=== PATIENT | male | born 1960 | race Caucasian/White ===

== ENCOUNTER 2017-03-10 06:11 | Emergency (ER) | payer OTHER ==
[2017-03-10] MEDS ORDERED: Ketorolac Tromethamine 30 MG/ML VIAL ONE (06:38)
== END 2017-03-10 07:01 | disposition home or self-care (01) ==
LOC: SCSER 06:11
DX: M54.31 Sciatica, right side (principal); K21.9 Gastro-esophageal reflux disease without esophagitis; Z79.899 Other long term (current) drug therapy
CPT/HCPCS: 96372; J1885; J2270

== ENCOUNTER 2017-03-12 18:55 | Observation (INO) | payer OTHER ==
[2017-03-12] MEDS ORDERED: Ketorolac Tromethamine 30 MG/ML VIAL ONE (19:39)
[2017-03-12] MEDS ORDERED: Diazepam 10 MG/2 ML SYRINGE ONE (19:39)
[2017-03-12 19:47] LABS: #Basophils 0.1 thou/uL (0.0-0.2); #Lymphocytes 1.4 thou/uL (1.20-3.40); %Basophils 0.6 % (0.0-1.0); %Eosinophils 0.3 % (0.0-10.0); %Lymphocytes 10.3 % (21.0-51.0); %Monocytes 7.2 % (0.0-10.0); Hematocrit 42.9 % (42.0-52.0); Mean Platelet Volume 10.5 fL (7.4-10.4); White Blood Cell (WBC) Count 13.4 thou/uL (4.8-10.8)
[2017-03-12 19:58] LABS: Anion Gap 15 mmol/L (10-20); BUN (Urea Nitrogen) 17 mg/dL (8.4-25.7); Calc. Creatinine Clearance 0 mL/min (70-130); Calcium 9.4 mg/dL (7.8-10.44); Carbon Dioxide 26 mmol/L (22-29); Chloride 101 mmol/L (98-107); Estimated GFR-MDRD Greater than 90
--- NOTE | 2017-03-12 22:18 | RAD ---
THREE VIEWS LUMBAR SPINE 03/12/17 HISTORY: Low back pain which radiates to right leg. COMPARISON: 03/06/14. FINDINGS: Again noted is transitional vertebra at the lumbosacral junction. No fracture or subluxation is seen . The vertebral body heights are within normal limits. A few scattered minimal osteophytes are noted . There has been no interval change compared to the prior exam. IMPRESSION: 1. Mild degenerative changes without evidence of a fracture or subluxation. 2. Transitional vertebral body at the lumbosacral junction. POS: TATUM
[2017-03-13 04:29] VITALS: BMI 33.4
[2017-03-13] MEDS ORDERED: Ketorolac Tromethamine 30 MG/ML VIAL IVP PRN (04:29)
[2017-03-13] MEDS ORDERED: Morphine Sulfate 2 MG/ML SYRINGE SLOW IVP PRN (04:30)
[2017-03-13] MEDS ORDERED: Diazepam 10 MG/2 ML SYRINGE IVP PRN (04:31)
[2017-03-13] MEDS ORDERED: Ondansetron ODT 4 MG TAB SL PRN (04:32)
[2017-03-13] MEDS ORDERED: HYDROcodone/Acetaminophen 5/325 mg Tablet PO PRN ×2 (04:32)
[2017-03-13] MEDS ORDERED: Ondansetron HCl/PF 4 MG/2 ML Vial IVP PRN (04:32)
[2017-03-13] MEDS ORDERED: Acetaminophen 325 MG TAB PO PRN (04:32)
--- NOTE | 2017-03-13 06:06 | PDOC.EVN ---
Event Note - Event Note Event Note: [id number] h&p dictated 1. Acute on chronic lower back pain + h/o spinal stenosis 2. Pain 3. GERD PLAN: SEE ORDERS
[2017-03-13] MEDS: Dexamethasone 4 mg/ml Vial SLOW IVP SCH ×4 (06:30→23:04)
--- NOTE | 2017-03-13 06:53 | HP ---
CHIEF COMPLAINT: Back pain. HISTORY OF PRESENT ILLNESS: The patient is a 56-year-old male with past medical history of spinal s tenosis, GERD, chronic back pain, now came to the ER complaining of back pain. The back pain starte d 1 week back, constant, radiating to the right flank, spasm kind of pain to shooting kind of pain, associated with some numbness and tingling also. The patient tried some pain medication, some Flexe ril at home, it did not help, so he came to the ER. Patient also complains of urinary retention, al so. The patient went to outside ER where patient was found to have urinary retention, greater than 900 mL so the patient had a straight cath done. The patient last had micturition around 4:00 a.m. t his morning. Denies any fever, denies any chills, denies any chest pain, denies any trouble breathi ng, denies any dizziness. PAST MEDICAL HISTORY: As per HPI. PAST SURGICAL HISTORY: None. SOCIAL HISTORY: Denies smoking. Occasional alcohol, denies any drugs. ALLERGIES: PENICILLIN. MEDICATIONS: Reviewed. REVIEW OF SYSTEMS: CONSTITUTIONAL: Denies any fever, denies any chills. HEENT: Eyes; denies vision problems. Hearing, no problems. NECK: Denies any neck pain. CARDIOVASCULAR: Denies any chest pain. RESPIRATORY: Denies any dyspnea. Denies any cough. GASTROINTESTINAL: Denies nausea, vomiting. MUSCULOSKELETAL: Positive for back pain. PSYCHIATRIC: Denies syncope. INTEGUMENTARY: Denies any rash. All other review of systems are reviewed and are negative. PHYSICAL EXAMINATION: CONSTITUTIONAL/VITAL SIGNS: At the time of H\T\P performed, blood pressure is 138/69, heart rate 59 , temperature 98.0, respiration rate 16. GENERAL: Appears to be comfortable. HEENT: Pupils equal, round. Ears and nose patent. Nose normal. Teeth intact. Tongue is moist. NECK: Supple. No JVD. CARDIOVASCULAR SYSTEM: S1, S2 present. Regular rate and rhythm. No murmur. No rubs, no gallops. RESPIRATORY SYSTEM: No wheezing, no rhonchi. Breath sounds bilaterally. GASTROINTESTINAL: Soft, nontender, no guarding, no organomegaly, no masses felt. CRANIAL NERVE SYSTEM: Awake, follows commands. Speech clear. Strength intact. MUSCULOSKELETAL: Moves all extremities. PSYCH: Mood is appropriate at this time. INTEGUMENT: No rashes seen. LABORATORY DATA: At the time of H\T\P performed; white count 13.4, hemoglobin 14.1, platelet count is 261. BMP showed sodium 138, potassium 3.9, chloride 101, CO2 26, BUN 17, creatinine 0.85. MRI lumbar spine report is pending. X-ray lumbar spine positive for mild degenerative changes seen. ASSESSMENT AND PLAN: The patient is 56 years old male. 1. History of spinal stenosis plus acute on chronic lower back pain. Plan to consult Neurosurgery to evaluate the patient. We will monitor patient closely. We will start patient on IV Decadron and also on p.r.n. pain medication to monitor the patient closely. 2. Pain, p.r.n. pain meds. Monitor respiratory status closely. 3. Diabetes mellitus type 2. Monitor blood sugars. We will do insulin sliding scale. 4. Gastroesophageal reflux disease. We will do PPI. We will continue proton-pump inhibitor. The case was discussed in detail with the patient and patient's also.
[2017-03-13] MEDS: Enoxaparin Sodium 40 MG/0.4 ML SYRINGE SC SCH (08:28)
--- NOTE | 2017-03-13 08:44 | MRI ---
PRELIMINARY REPORT/[facility]/EMERGENCY AFTER HOURS PROCEDURE: EXAM: MR Lumbar Spine Without and With Intravenous Contrast EXAM DATE/TIME: Exam ordered 03/13/2017 12:11 AM CLINICAL HISTORY: 56 years old, male; Pain; Sciatica; Right; Patient HX: Pt C/O right sciatica (hip) pain x 5 days. Pa in is worsening. No trauma. No SX. Urinary retention. TECHNIQUE: Magnetic resonance images of the lumbar spine without and with intravenous contrast in multiple plan es. COMPARISON: No relevant prior studies available. FINDINGS: Vertebrae: Normal. No acute fracture. Marrow: There is increased T1 and T2 signal within the pars of L5 on the RIGHT probably representing fatty change or a hemangioma. Spinal cord: Normal. Normal signal. No abnormal enhancement. Soft tissues: Nonspecific soft tissue edema is noted in the posterior paraspinal muscles at L4-L5. DISCS/SPINAL CANAL/NEURAL FORAMINA: T12-L1: At T12-L1 there is no disc herniation stenosis or neuroforaminal narrowing. L1-L2: At L1-L2 there is mild disc bulge without significant spinal canal stenosis or neuroforaminal narrowing. L2-L3: At L2-L3 there is a broad-based mild disc bulge without significant spinal canal stenosis or neuroforaminal narrowing. L3-L4: At L3-L4 there is a moderate disc bulge which abuts the bilateral exiting nerve roots and cau ses mild spinal canal stenosis. L4-L5: L4-L5 there is a moderate broad-based disc bulge resulting in mild spinal canal stenosis and neuroforaminal narrowing. L5-S1: L5-S1 there is no significant spinal canal stenosis or neuroforaminal narrowing. IMPRESSION: Moderate disc bulge at L3-L4 with neural foraminal narrowing and moderate impaction of the bilateral exiting nerve roots. Thank you for allowing us to participate in the care of your patient. Dictated and Authenticated by: Miki Hutton MD 03/13/2017 1:34 AM Central Time ([place] \T\ [place]) FINAL REPORT EMERGENCY AFTER HOURS STUDY MRI LUMBAR SPINE NONCONTRAST: Date: 03/13/17 Time: 0014 hours HISTORY: 56-year-old male with low back pain and urinary retention, and right hip pain for 5 days. FINDINGS: Not mentioned in the preliminary report by Ricardo, there is a right far lateral, approximately 15 x 7 x 8 mm extruded disc fragment lateral to the right L3-4 neural foramen, deforming and indenting the undersurface of the exiting right L3 nerve root. This has a high probability of being the cause of t he patient's right-sided radiculopathy. This was not mentioned in the preliminary report by Ricardo. The urinary bladder is distended. Note that there is transitional level at the lumbosacral junction and the labeling of the L3-4 level is contingent upon considering L5 partially sacralized, with left -sided L5-S1 assimilation joint. IMPRESSION: 1. Right L3-4 far lateral extruded disc fragment significantly impinging on the exiting right L3 ne rve root. 2. Transitional levels. POS: TATUM
[2017-03-13] MEDS ORDERED: Famotidine 20 MG TAB PO PRN (09:00)
[2017-03-13] MEDS ORDERED: Gabapentin 300 MG CAP PO SCH (09:00)
[2017-03-13] MEDS: traMADol HCl 50 MG TAB PO PRN ×2 (15:35→23:02)
--- NOTE | 2017-03-13 16:12 | PDOC.EVN ---
Event Note - Event Note Event Note: Chart reviewed, pt seen. Awaiting neurosurgery recommendations.
[2017-03-13] MEDS ORDERED: Acetaminophen/Codeine 30-300mg Tablet PO PRN (17:19)
--- NOTE | 2017-03-13 18:14 | CON ---
DATE OF CONSULTATION: 03/13/2017 HISTORY OF PRESENT ILLNESS: Mr. Alas is a 56-year-old male, who I saw in his room this morning. He has chronic low back pain and has had several episodes throughout the past few years approximate ly 2-3 episodes per year of back pain and leg pain. These episodes are not increasing frequency. T his episode; however, is the worst he has been. Back pain started about a week ago after constant, radiating right flank spasms, shooting in character and associated with numbness and tingling in the right L4 and L5 dermatome in the lower extremity. He has tried pain medications taking Flexeril at home that did not help. He came to the emergency room at [facility] with complaints of so me urinary retention. The patient was straight catheterized and 900 mL were returned. The patient had urine around 4:00 a.m. this morning. Denies any fever, chills, or chest pain. Denies any troub le breathing. Patient specifically denies any bladder or bowel incontinence. An MRI of the lumbar spine was completed and Neurosurgery was consulted on the findings. PAST MEDICAL HISTORY: Lumbar spinal stenosis, GERD, chronic low back pain. PAST SURGICAL HISTORY: None. SOCIAL HISTORY: Denies smoking or occasional alcohol. Denies any drugs. ALLERGIES: PENICILLIN. MEDICATIONS: Have been reviewed. REVIEW OF SYSTEMS: Positive for back pain and right leg numbness and tingling in the L4 and L5 derm atome. Ten-point review of systems is completed and is otherwise negative unless stated in the abov e HPI. PHYSICAL EXAMINATION: VITAL SIGNS: Currently, temperature 98.5, pulse 89, respirations 16, O2 sat 96%, blood pressure is 132/66. CONSTITUTIONAL: The patient is afebrile in no acute distress, lying in his bed, appears to be comfo rtable. HENT: Normocephalic, atraumatic. Hearing intact. Moist mucous membranes. Trachea is midline. EYES: Pupils equal and reactive to light. Extraocular muscles are intact. Sclerae is white, nonic teric. RESPIRATORY: The patient has bilateral symmetric chest rise. Appears to be no shortness of breath. CARDIOVASCULAR: The patient has regular rate and rhythm, normal S1, S2 heart sounds. EXTREMITIES: No distal cyanosis or clubbing noted. Pulses are equal and symmetric bilaterally in t he upper extremities in the brachial and radial. Pulses are equal +2 and symmetric in the lower ext remities and posterior tibial pulses. MUSCULOSKELETAL: lower extremity, patient has numbness and tingling in the right L5 dermatome and L 4 dermatome. He has 5/5 strength bilaterally, no dermatomal sensory loss in the left lower extremit y. He has 5/5 strength bilaterally in the upper extremity. No dermatomal sensory loss in the upper extremities bilaterally. NEUROLOGIC: Cranial nerves II-XII are grossly intact. Speech is fluent. Answers my questions appr opriately. GCS is 15. IMAGING: MRI of the lumbar spine shows right L3-L4 far lateral extruded disk fragment significantly impinging on exiting root area of L3 nerve root. Patient has moderate disk bulges that are broad-b ased at L2 through L5 resulting in mild spinal canal stenosis and mild foraminal narrowing. ASSESSMENT: Mr. Alas is a 56-year-old who presents with intractable low back pain and urinary re tention. Urinary retention, has resolved. PLAN: From neurosurgical standpoint, there is no neurosurgical intervention. It is an emergency at this time. We will have Mr. Alas follow up in our office. Our corporate scheduler will be contacting him and setting up that appointment in the near future. We will discuss treatment options at that time . Before he sees us in clinic, he should be referred to Dr. Gusman and Dr. Davila for epidu ral steroid or transforaminal injections to see if that gives him relief. After these injections, obed hallman needs to follow up with Neurosurgery. If there are any further questions, please feel free to con tact Neurosurgery.
[2017-03-13] MEDS: Cyclobenzaprine 10 MG TAB PO PRN (19:20)
[2017-03-13] MEDS: Gabapentin 300 MG CAP PO SCH (19:21)
[2017-03-13] MEDS: Acetaminophen/Codeine 30-300mg Tablet PO PRN (19:21)
[2017-03-13] MEDS: Diazepam 5 MG TAB PO PRN (23:03)
[2017-03-14] MEDS: Acetaminophen/Codeine 30-300mg Tablet PO PRN ×3 (05:50→20:08)
[2017-03-14] MEDS: Cyclobenzaprine 10 MG TAB PO PRN ×3 (05:50→22:59)
[2017-03-14] MEDS: Dexamethasone 4 mg/ml Vial SLOW IVP SCH ×4 (05:52→23:00)
[2017-03-14] MEDS: Enoxaparin Sodium 40 MG/0.4 ML SYRINGE SC SCH (09:24)
[2017-03-14] MEDS: Gabapentin 300 MG CAP PO SCH ×3 (09:24→20:08)
[2017-03-14] MEDS: traMADol HCl 50 MG TAB PO PRN ×3 (09:29→22:59)
[2017-03-14] MEDS: Diazepam 5 MG TAB PO PRN ×2 (09:29→17:24)
[2017-03-14] MEDS ORDERED: Bisacodyl 5 MG TAB PO PRN (09:51)
[2017-03-14] MEDS ORDERED: Bisacodyl 5 MG TAB PO SCH (10:00)
--- NOTE | 2017-03-14 11:36 | PRG ---
DATE OF SERVICE: 03/14/2017 This is a 30-minute initial hospital visit in which 30 minutes were spent in review of the imaging r ecord, evaluation and examination of the patient. Greater than 50% of the time was spent in staff counselor ing on patient, Anthony Alas. CHIEF COMPLAINT: Low back and right lower extremity pain with right L3-L4 far lateral disk extrusio n with compression of the right L3 nerve root. HISTORY OF PRESENT ILLNESS: I reviewed the notes of Bunny Blount PA-C, and agree with its content. Olivia Alas is a very pleasant 56-year-old gentleman I am seeing in consultation. The patient, for t he last 1 week, has had low back and right lower extremity pain. He describes this is into the hip and the lateral and anterior thigh. He does state it goes below the knee, which is not typical of a n L3 radiculopathy. Nevertheless review of his lumbar spine x-rays demonstrate no worrisome subluxa tion or malalignment, but these were not dynamic films. MRI demonstrates evidence of a right L3-L4 far lateral disk extrusion with compression of the exiting right L3 nerve root. I strongly suspect this is the culprit of his symptoms. He has been initiated on Tylenol with Codeine, Flexeril, Decad fidencio, and Valium and also gabapentin. Consultation with Dr. Gusman has also been arranged. PHYSICAL EXAMINATION: On exam, the patient is alert and appropriate. He has excellent strength thr oughout his bilateral lower extremity myotomes. He has even tried to get up and states that he is f eeling better than he did yesterday; they were admitted yesterday morning, approximately 30 hours ag o. IMPRESSION AND PLAN: I have let the patient know that I think given that he has only had the sympto ms for 1 week and that he has excellent strength throughout his lower extremity myotomes, pursuance of conservative management would be recommended. As such, I would be fine with dismissal once his p ain is under satisfactory control and arranging for a followup appointment with Dr. Gusman for right L3 transforaminal epidural steroid injection with follow up with either my colleague, Dr. Yasmin galvan, or myself. We will continue to follow along in regard to Mr. Alas. [facility] the dismissal may occur whenever the patient is deemed with satisfactory pain control an d meets criteria. DIAGNOSES: Low back and right lower extremity pain with right L3-L4 far lateral disk extrusion and right L3 radiculopathy.
--- NOTE | 2017-03-14 12:35 | PDOC.PN ---
- Subjective Encounter Start Date: 03/14/17 Encounter Start Time: 07:40 Pt seen for followup re; back pain. Denies chest pain, shortness of breath, fevers or chills. No nausea or vomiting. Constipated. - Objective MAR Reviewed: Yes Vital Signs & Weight: Vital Signs (12 hours) Temp Pulse Resp BP Pulse Ox 03/14/17 11:08 97.8 F 71 20 122/70 91 L 03/14/17 07:57 97.9 F 64 16 03/14/17 07:00 97.9 F 64 16 120/70 94 L 03/14/17 04:28 97.6 F 67 18 131/79 97 Weight Weight 213 lb 6.4 oz I&O: 03/13/17 03/14/17 03/15/17 06:59 06:59 06:59 Intake Total 241 1781 300 Output Total 2400 Balance 241 -619 300 Result Diagrams: 03/12/17 19:35 03/12/17 19:35 Phys Exam - Physical Examination Constitutional: NAD HEENT: moist MMs, oral pharynx no lesions Neck: supple Respiratory: no wheezing, no rales, no rhonchi, clear to auscultation bilateral Cardiovascular: RRR, no rub Gastrointestinal: soft, non-tender, positive bowel sounds Neurological: moves all 4 limbs Psychiatric: normal affect Skin: no rash Dx/Plan (1) Back pain Code(s): M54.9 - DORSALGIA, UNSPECIFIED Status: Acute (2) Constipation Code(s): K59.00 - CONSTIPATION, UNSPECIFIED Status: Acute (3) Lumbar stenosis Code(s): M48.06 - SPINAL STENOSIS, LUMBAR REGION Status: Chronic - Plan PT/OT, out of bed/ambulate, DVT proph w/lovenox * . Continue steroids. Ambulate pt. Appreciate neurosurgery input. Likely home 24-48 hrs. Review of Systems - Review of Systems Constitutional: negative: Fever, Chills, Sweats, Weakness, Malaise Respiratory: negative: Cough, Dry, Shortness of Breath, Hemoptysis, SOB with Excertion, Pleuritic Pain, Sputum, Wheezing Cardiovascular: negative: Chest Pain, Palpitations, Orthopnea, Paroxysmal Noc. Dyspnea, Edema, Light Headedness Gastrointestinal: Constipation Musculoskeletal: Back Pain, Leg Pain - Medications/Allergies Allergies/Adverse Reactions: Allergies Allergy/AdvReac Type Severity Reaction Status Date / Time Penicillins Allergy Verified 03/13/17 04:38 Medications: Current Medications Acetaminophen/Codeine Phosphate (Tylenol #3) 1 tab PO Q4H PRN PRN Reason: Moderate Pain (4-6) Acetaminophen/Codeine Phosphate (Tylenol #3) 2 tab PO Q4H PRN PRN Reason: Severe Pain (7-10) Last Admin: 03/14/17 11:46 Dose: 2 tab Bisacodyl (Dulcolax) 10 mg PO DAILYPRN PRN PRN Reason: Constipation Cyclobenzaprine HCl (Flexeril) 10 mg PO TID PRN PRN Reason: Muscle Spasm Last Admin: 03/14/17 05:50 Dose: 10 mg Dexamethasone (Decadron) 4 mg SLOW IVP Q6HR [facility] Last Admin: 03/14/17 11:44 Dose: 4 mg Diazepam (Valium) 5 mg PO Q8H PRN PRN Reason: Muscle Spasm Last Admin: 03/14/17 09:29 Dose: 5 mg Enoxaparin Sodium (Lovenox) 40 mg SC 0900 [facility] Last Admin: 03/14/17 09:24 Dose: 40 mg Famotidine (Pepcid) 20 mg PO DAILYPRN PRN PRN Reason: INDIGESTION Gabapentin (Neurontin) 300 mg PO TID [facility] Last Admin: 03/14/17 09:24 Dose: 300 mg Pantoprazole Sodium (Protonix) 40 mg PO BID [facility] Last Admin: 03/14/17 09:24 Dose: 40 mg Sodium Chloride (Flush - Normal Saline) 10 ml IVF Q12HR [facility] Sodium Chloride (Flush - Normal Saline) 10 ml IVF PRN PRN PRN Reason: Saline Flush Tramadol HCl (Ultram) 50 mg PO Q6H PRN PRN Reason: Mild-Moderate Pain (1-5) Last Admin: 03/13/17 23:02 Dose: 50 mg Tramadol HCl (Ultram) 100 mg PO Q6H PRN PRN Reason: Moderate to Severe Pain (6-10) Last Admin: 03/14/17 09:29 Dose: 100 mg
[2017-03-15] MEDS: traMADol HCl 50 MG TAB PO PRN ×3 (04:49→18:14)
[2017-03-15] MEDS: Diazepam 5 MG TAB PO PRN ×3 (04:49→20:21)
[2017-03-15] MEDS: Dexamethasone 4 mg/ml Vial SLOW IVP SCH (04:49)
[2017-03-15] MEDS: Acetaminophen/Codeine 30-300mg Tablet PO PRN ×3 (07:09→20:20)
[2017-03-15] MEDS: Cyclobenzaprine 10 MG TAB PO PRN ×2 (07:09→15:22)
[2017-03-15] MEDS: Enoxaparin Sodium 40 MG/0.4 ML SYRINGE SC SCH (08:55)
[2017-03-15] MEDS: Gabapentin 300 MG CAP PO SCH ×3 (08:56→20:20)
--- NOTE | 2017-03-15 10:58 | PDOC.PN ---
- Subjective Encounter Start Date: 03/15/17 Encounter Start Time: 10:56 Patient states that he having severe pain and difficulty walking and after his morning walk he is having even more pain and discomfort. States that he would prefer to go to his physicians office tomorrow directly from the hospital as he lives hours away and says he will not be able to tolerate the pain. at bedside, all questions answered. - Objective Vital Signs & Weight: Vital Signs (12 hours) Temp Pulse Resp BP Pulse Ox 03/15/17 07:22 98.4 F 74 16 03/15/17 07:10 98.1 F 76 18 122/71 94 L 03/15/17 04:43 98.4 F 74 16 128/76 96 03/14/17 23:07 97.7 F 75 12 130/75 92 L Weight Weight 232 lb I&O: 03/14/17 03/15/17 03/16/17 06:59 06:59 06:59 Intake Total 1781 1140 250 Output Total 2400 275 150 Balance -619 865 100 Result Diagrams: 03/12/17 19:35 03/12/17 19:35 Phys Exam - Physical Examination Constitutional: NAD laying in bed, knees bent unable to sit up appears uncomfortable in bed HEENT: PERRLA, moist MMs Neck: no nodes, no JVD Respiratory: no wheezing, no rales Cardiovascular: RRR, no significant murmur Gastrointestinal: soft, non-tender Musculoskeletal: no edema, pulses present positive straight leg raise test B/L Neurological: non-focal, normal sensation Psychiatric: normal affect, A&O x 3 Skin: no rash, normal turgor Dx/Plan (1) Back pain Code(s): M54.9 - DORSALGIA, UNSPECIFIED Status: Acute (2) Constipation Code(s): K59.00 - CONSTIPATION, UNSPECIFIED Status: Acute (3) Lumbar stenosis Code(s): M48.06 - SPINAL STENOSIS, LUMBAR REGION Status: Chronic - Plan * DC decadron for today, will change to prednisone 40mg po daily for now to see if patient can tolerate po pain medication regimen * patient states he will go directly to his physicians office tomorrow to get a shot in his spine to help for his pain * patient states he is still having significant pain and unable to do much after his short walk earlier this morning * DC plans in AM directly to physicians office for spinal pain injections * case and plan d/w patient and at length, they understand and agree with this plan
[2017-03-15] MEDS ORDERED: Docusate 100 MG CAP PO SCH (11:00)
[2017-03-15] MEDS ORDERED: predniSONE 20 MG TAB PO SCH (11:15)
[2017-03-15] MEDS: Docusate 100 MG CAP PO SCH (20:20)
[2017-03-16 07:43] VITALS: BP 143/82; TEMP 98.2
[2017-03-16] MEDS: Gabapentin 300 MG CAP PO SCH (07:46)
[2017-03-16] MEDS: Enoxaparin Sodium 40 MG/0.4 ML SYRINGE SC SCH (07:46)
[2017-03-16] MEDS: Docusate 100 MG CAP PO SCH (07:47)
[2017-03-16] MEDS: Cyclobenzaprine 10 MG TAB PO PRN (07:48)
[2017-03-16] MEDS: traMADol HCl 50 MG TAB PO PRN (07:48)
[2017-03-16] MEDS ORDERED: predniSONE 20 MG TAB PO SCH (08:00)
[2017-03-16] MEDS ORDERED: Fleet Enema 133 ML BOT PR SCH (09:45)
[2017-03-16] MEDS: Diazepam 5 MG TAB PO PRN (11:51)
[2017-03-16] MEDS: Acetaminophen/Codeine 30-300mg Tablet PO PRN (11:52)
--- NOTE | 2017-03-16 12:13 | DIS ---
DATE OF ADMISSION: 03/13/2017 DATE OF DISCHARGE: 03/16/2017 DISCHARGE DIAGNOSES: Back pain secondary to lumbar spinal stenosis and some lumbar disk disease, ga stroesophageal reflux disease, chronic low back pain, questionable history of borderline diabetes. DISCHARGE MEDICATIONS: The same as admit medications. CONSULTANTS: Consultants on the case with Neurosurgery. IMAGING STUDIES: Studies done this hospital stay was MRI of the lumbar spine, which showed a right L3-L4 far lateral extruded disk fragment significantly impinging on the exiting root area of L3 nerv e root, also had moderate disk bulges that are broad based at L2 through L5 resulting in mild spinal canal stenosis and mild foraminal narrowing. BRIEF HOSPITAL COURSE: A 56-year-old pleasant gentleman who came into the hospital for back pain. Comfort care was initiated with pain medications. Neurosurgery evaluated the patient and went over the lumbar spine MRI films of him. The patient from a neurosurgical standpoint, they thought that t here was no neurosurgical intervention needed at this point. They, however, recommended outpatient pain clinic and also recommended epidural steroid injections to see if that gave him relief. They a lso said that if it does not, he would follow up with Neurosurgery. The patient has appointment wit h pain management today. His pain is bearable. His hospital course was complicated by constipation secondary to pain pills. He had a fleet enema and constipation was resolved. The patient right no w is medically stable to be discharged with outpatient followup with pain management, Neurosurgery, and PCP in 1 week. PHYSICAL EXAMINATION: VITAL SIGNS: At the time of his discharge, his blood pressure was 130/60, temperature afebrile, pul se was 89, breathing comfortably on room air. GENERAL: The patient was lying in bed, in no apparent distress. HEENT: Atraumatic, normocephalic. Pupils equally round, react to light. Extraocular movements are intact. Mucous membranes are moist. NECK: Supple. No JVD. CHEST: Breath sounds. There are no rales or rhonchi. HEART: S1, S2. No murmurs or gallops. ABDOMEN: Soft. EXTREMITIES: No cyanosis, clubbing, or edema. Distal pulses present. NEUROLOGIC: Alert, awake, oriented. No cranial deficits. No sensorimotor deficits. The patient right now is medically stable to be discharged. He is asked to come back to the emergen cy room in case symptoms recur. Total time for this discharge took 35 minutes.
== END 2017-03-16 12:45 | disposition home or self-care (01) ==
LOC: SCSER 18:55 → 2SW 03-13 01:40
PROVIDERS: ADMIT Internal Medicine; ATTEND Internal Medicine
DX: M48.061 Spinal stenosis, lumbar region without neurogenic claudication (principal); M51.36 Other intervertebral disc degeneration, lumbar region; K21.9 Gastro-esophageal reflux disease without esophagitis; Z88.0 Allergy status to penicillin; Z79.891 Long term (current) use of opiate analgesic
CPT/HCPCS: 51701; 72100; 72148; 80048; 85025; 96361; 96372; 96374; 96375; 96376; A4216; G0378; G8978-GP-CJ; G8979-GP-CH; J1100; J1650; J1885; J2270; J3360; J7506

== ENCOUNTER 2018-10-07 15:34 | Outpatient (CLI) | payer BC ==
--- NOTE | 2018-10-07 16:28 | RAD ---
Exam: Lumbar spine 4 views HISTORY: Disc herniation at L3 and L4. Right leg pain. COMPARISON: 03/12/2017 FINDINGS: Upright AP, lateral neutral, lateral flexion and lateral extension views are submitted for interpretation Redemonstration of a transitional vertebra at the lumbosacral junction. Lumbar spine vertebral body h eight is maintained. There is no fracture. In the neutral position, 2.8 mm of anterolisthesis of L5 upon S1. Upon flexion, 3.9 mm of anterolisthesis of L5 upon S1. Upon extension, 2.7 mm retrolisthesis of L5 upon S1. Minimal osteophyte formation, without significant loss of disc space height throughout the lumbar spi ne. IMPRESSION: 1. Mild degenerative changes. 2. Grade 1 anterolisthesis of L4-5 upon S1 without significant change upon extension or flexion.
--- NOTE | 2018-10-08 08:07 | MRI ---
MRI Lumbar Spine Noncontrast: HISTORY: Low back pain. Right leg pain. COMPARISON: None 04/03/2017 FINDINGS: The visualized retroperitoneal structures demonstrate a normal appearance. Conus medullaris is normal in morphology and terminates at the T12 level. Normal signal intensity is demonstrated in the bone marrow. L1-2: There is a mild disc osteophyte complex which only results in mild mass effect on the anterior aspect of the thecal sac. Neural foramina are patent. L2-3: There is a disc osteophyte complex without significant narrowing of the central spinal canal, a nd the neural foramina are patent. L3-4: There is loss of intervertebral disc height. Disc osteophyte complex is present. As noted on th e prior exam, there is a persistent far lateral right extruded disc fragment lateral to the right L3-4 neural foramen. This again likely affects the exited right L3 nerve root. There is mild left and moderate right-sided neural foraminal narrowing L4-5: There is loss of intervertebral disc height. Broad-based disc osteophyte complex is again prese nt. Facet hypertrophic changes and ligamentous thickening are noted. There is generalized mild narrowing of the central spinal canal with moderate bilateral neural foraminal narrowing. A 6 mm incr eased T2-weighted signal intensity focus is seen adjacent to the anterolateral right facet joint which likely represents a small synovial cyst. This does encroach on the exiting right L4 nerve root. L5-S1: No disc bulge disc herniation is identified. There are facet hypertrophic changes greater on t he right. Fluid signal intensity is again seen within the right-sided facet joint. IMPRESSION: Degenerative changes in the lumbar spine greatest at the L3-4 and L4-5 levels. At the L3-4 level, the re is a broad-based disc osteophyte complex in addition to a far lateral right extruded disc fragment which again likely affects the exited right L3 nerve root. Moderate bilateral neural foramin al narrowing is seen at the L4-5 level with synovial cyst adjacent to the right sided facet joint which encroaches on the exiting right L4 nerve root. Moderate bilateral neural foraminal narrowing is present at this level.
== END 2018-10-07 15:35 | disposition home or self-care (01) ==
LOC: TBSIIMAG 15:34
PROVIDERS: ATTEND Physician Assistant Surgical
DX: M48.061 Spinal stenosis, lumbar region without neurogenic claudication (principal); M54.5 Low back pain; M47.816 Spondylosis without myelopathy or radiculopathy, lumbar region; M43.16 Spondylolisthesis, lumbar region; M43.17 Spondylolisthesis, lumbosacral region; M25.78 Osteophyte, vertebrae; M71.38 Other bursal cyst, other site
CPT/HCPCS: 72110; 72148

== ENCOUNTER 2019-09-08 13:38 | Outpatient (CLI) | payer BC ==
--- NOTE | 2019-09-08 15:00 | MRI ---
MRI lumbar spine noncontrast HISTORY: Low back pain. Radiculopathy. COMPARISON: 10/07/2018. FINDINGS: Transitional vertebra at the lumbosacral junction. In keeping with numbering on prior MRI f rom 09/08/2019, the transitional vertebra will be designated as L5, with the remainder number accordingly. Conus medullaris terminates at T12 and has a normal appearance. Bone marrow signal is wi thin normal limits. There is desiccation of all of the intervertebral discs. T12-L1: Mild osteophytosis. Central canal and neural foramina are patent. L1-2: Minimal disc bulge. Osteophytosis of the facets. Central canal and neural foramina are patent. L2-3: Mild far right and left lateral disc bulge. Osteophytosis of the facets. Moderate stenosis of e ach neural foramen. Thecal sac is patent. L3-4: Disc space narrowing. Posterior disc bulge and circumferential degenerative changes. Mild steno sis of the central canal. Far right lateral disc protrusion and degenerative changes compress the right nerve root within the neural foramen. Nerve root appears enlarged. There is moderate to severe stenosis of the left neural foramen. L4-5: Minimal degenerative spondylolisthesis. Mild posterior disc bulge and circumferential degenerat blas changes. Mild stenosis of the central canal. Moderate to severe stenosis of each neural foramen. L5-S1: Osteophytosis of the facets. Central canal and neural foramina are patent. 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 Interval progression of disease. More prominent compression of the inflamed appearing right L3 nerve root within the neural foramen. Bilateral foraminal stenoses at the L4-5 level have also progressed.
== END 2019-09-08 13:39 | disposition home or self-care (01) ==
LOC: TBSIIMAG 13:38
PROVIDERS: ATTEND Surgery
DX: M54.16 Radiculopathy, lumbar region (principal); M71.30 Other bursal cyst, unspecified site; M48.061 Spinal stenosis, lumbar region without neurogenic claudication
CPT/HCPCS: 72148

== ENCOUNTER 2019-10-17 07:33 | Outpatient (CLI) | payer BC, OTHER ==
[2019-10-17 15:45] LABS: Hemoglobin 13.6 g/dL (14.0-18.0); Mean Corpuscular HGB CONC 32.4 g/dL (32.0-36.0); Mean Corpuscular Hemoglobin 28.4 pg (27.0-31.0); Mean Corpuscular Volume 87.8 fL (78.0-98.0); Mean Platelet Volume 9.7 fL (7.4-10.4); Platelet Count 282 thou/uL (130-400); RBC Distribution Width 14.4 % (11.5-14.5); Red Blood Cell (RBC) Count 4.78 mill/uL (4.70-6.10); White Blood Cell (WBC) Count 7.4 thou/uL (4.8-10.8)
[2019-10-17 15:51] LABS: PTT 27.1 SEC (22.9-36.1); Prothrombin Time 12.9 SEC (12.0-14.7)
[2019-10-17 16:08] LABS: Anion Gap 14 mmol/L (10-20); BUN (Urea Nitrogen) 11 mg/dL (8.4-25.7); Calc. Creatinine Clearance 0 mL/min (70-130); Calcium 9.2 mg/dL (7.8-10.44); Carbon Dioxide 25 mmol/L (22-29); Chloride 106 mmol/L (98-107); Estimated GFR-MDRD 74; Glucose 119 mg/dL (70-105); Potassium 3.6 mmol/L (3.5-5.1); Sodium 141 mmol/L (136-145)
[2019-10-18 11:19] LABS: SARS-CoV-2 MS2 Positive; SARS-CoV-2 N Gene Negative; SARS-CoV-2 S Gene Negative; SARS-CoV-2 orf1ab Negative
== END 2019-10-17 07:34 | disposition home or self-care (01) ==
LOC: LABBT 07:33
PROVIDERS: ATTEND Surgery
DX: Z01.818 Encounter for other preprocedural examination (principal); Z11.59 Encounter for screening for other viral diseases; M51.16 Intervertebral disc disorders with radiculopathy, lumbar region; M48.061 Spinal stenosis, lumbar region without neurogenic claudication
CPT/HCPCS: 80048; 85027; 85610; 85730; 87635; 93005; 93010; U0003

== ENCOUNTER 2019-10-20 08:56 | Day surgery (SDC) | payer BC ==
[2019-10-20] MEDS ORDERED: Levofloxacin 500 mg/D5W 100 ml Premix Bag ONE (09:36)
[2019-10-20] MEDS ORDERED: Clindamycin/D5W 900 mg/50 ml Premix Bag ONE (09:36)
[2019-10-20] MEDS ORDERED: Ondansetron PF 4 MG/2 ML Vial ONE (10:35)
[2019-10-20] MEDS ORDERED: Rocuronium Bromide 10 MG/ML (10ML VIAL) ONE (10:35)
[2019-10-20] MEDS ORDERED: Ketorolac Tromethamine 30 MG/ML VIAL ONE (10:35)
[2019-10-20] MEDS ORDERED: diphenhydrAMINE 50 MG/ML VIAL ONE (10:35)
[2019-10-20] MEDS ORDERED: Glycopyrrolate 0.2 MG/ML 5 ML SYRINGE ONE (10:35)
[2019-10-20] MEDS ORDERED: PHENYLEPHRINE-NS 100 MCG/ML 10 ML SYRINGE ONE (10:35)
[2019-10-20] MEDS ORDERED: PROPOFOL 200 MG/20 ML VIAL ONE (10:35)
[2019-10-20] MEDS ORDERED: Dexamethasone 20 MG/5 ML VIAL ONE ×2 (10:35)
[2019-10-20] MEDS ORDERED: EPHEDRINE 25 MG/5 ML SYRINGE ONE (10:35)
[2019-10-20] MEDS ORDERED: Thrombin 5000 UNITS/5 ML VIAL ONE ×2 (11:19→14:09)
[2019-10-20] MEDS ORDERED: Ketamine 50 MG/ML (10ML VIAL) ONE (11:32)
[2019-10-20] MEDS ORDERED: Midazolam HCl 2 mg/2 ml Vial ONE (11:32)
[2019-10-20] MEDS ORDERED: Fentanyl 250 MCG/5 ML VIAL ONE (11:32)
[2019-10-20] MEDS ORDERED: Phenylephrine 10 MG/ML VIAL ONE (13:42)
[2019-10-20] MEDS ORDERED: PACU-Morphine 4MG/ML VIAL SLOW IVP PRN (15:19)
[2019-10-20] MEDS ORDERED: Promethazine HCl 25 MG/ML VIAL SLOW IVP PRN (15:19)
[2019-10-20] MEDS ORDERED: Meperidine HCl/PF 25 MG/ML VIAL SLOW IVP PRN (15:19)
[2019-10-20] MEDS ORDERED: Promethazine HCl 25 MG/ML VIAL IM PRN (15:19)
[2019-10-20] MEDS ORDERED: HYDROmorphone 2 MG/ML VIAL SLOW IVP PRN (15:19)
[2019-10-20] MEDS ORDERED: Ondansetron HCl/PF 4 MG/2 ML Vial IVP PRN (15:19)
[2019-10-20] MEDS ORDERED: Morphine Sulfate 2 MG/ML SYRINGE SLOW IVP PRN (15:19)
[2019-10-20] MEDS ORDERED: Milk Of Magnesia 30 ML UDCUP PO PRN (15:23)
[2019-10-20] MEDS ORDERED: Mag-Al 1200 mg/1200 mg/30 ML UDCUP PO PRN (15:23)
[2019-10-20] MEDS ORDERED: Bisacodyl 10 MG SUPP PR PRN (15:23)
[2019-10-20] MEDS ORDERED: Acetaminophen 325 MG TAB PO PRN (15:23)
[2019-10-20] MEDS ORDERED: Ondansetron PF 4 MG/2 ML Vial IVP PRN (15:23)
[2019-10-20] MEDS ORDERED: Morphine 2 MG/ML SYRINGE SLOW IVP PRN (15:23)
[2019-10-20] MEDS ORDERED: HYDROcodone/Acetaminophen 7.5/325 mg Tablet PO PRN (15:23)
[2019-10-20] MEDS ORDERED: tiZANidine HCl 4 MG TAB PO PRN (15:23)
[2019-10-20] MEDS ORDERED: traMADol HCl 50 MG TAB PO PRN (15:23)
[2019-10-20] MEDS ORDERED: Fentanyl 100 MCG/2 ML VIAL ONE (15:27)
[2019-10-20] MEDS ORDERED: Fleet Enema 133 ML BOT PR PRN (15:58)
--- NOTE | 2019-10-20 17:12 | OP ---
DATE OF PROCEDURE: 10/20/2019 LOCATION: OR 12. SURGEON: Napoleon Seth MD PSYCHIATRIC ATTENDANT: Nancy Roger PA-C PREPROCEDURE DIAGNOSES: Low back and right leg pain with lumbar stenosis and far-lateral disk extrusion. POSTPROCEDURE DIAGNOSES: Low back and right leg pain with lumbar stenosis and far-lateral disk extrusion. PROCEDURES PERFORMED: 1. Right L3-L4 hemilaminotomy, foraminotomy, and diskectomy. 2. Right L3-L4 transfacet approach for far-lateral diskectomy. 3. Right L4-L5 hemilaminotomy, foraminotomy. 4. Use of operative microscope for microdissection. DESCRIPTION OF PROCEDURE: After informed consent was obtained from the patient, the patient brought to the OR. Proper patient, pause, and identification were carried out. He was placed under excellent endotracheal anesthesia and positioned prone on the OR table. All appropriate points were padded. We identified the L3-L4 and L4-L5 dorsal spines and lamina. Linear brandi was made over this region. This area was sterilely cleansed, prepared, and draped. Proper patient, pause, and identification were carried out. The wound was then opened with combination of sharp, monopolar, and blunt dissection. The right L3-L4 and right L4-L5 segments were exposed. Localization film confirmed area of interest. We then performed right L3-L4 and right L4-L5 hemilaminotomies and foraminotomies. Microscope was brought and the right L3-L4 paracentral diskectomy was performed. I then performed the transfacet approach through right L3-L4 segment for diskectomy in the far-lateral component with excellent decompression of the exiting right L3 nerve root following removal of multiple fragments out of the right L3 foramen. Copious irrigation occurred throughout as did maximizing hemostasis. The wound was then closed in anatomic layers following sprinkling of vancomycin powder. The patient then emerged from anesthesia. Job ID: [id number]
[2019-10-20] MEDS: Clindamycin/D5W 900 MG in Premix Bag 1 BAG IVPB SCH (18:07)
[2019-10-20 18:46] VITALS: BMI 34.8
[2019-10-20] MEDS: Gabapentin 300 MG CAP PO SCH (20:51)
[2019-10-20] MEDS: Acetaminophen/Codeine 30-300mg Tablet PO PRN (23:07)
[2019-10-20] MEDS: Sodium Chloride 0.9% 1,000 ML IV SCH (23:12)
[2019-10-21] MEDS: Clindamycin/D5W 900 MG in Premix Bag 1 BAG IVPB SCH (01:46)
[2019-10-21] MEDS: Acetaminophen/Codeine 30-300mg Tablet PO PRN ×3 (01:53→09:46)
[2019-10-21 04:47] VITALS: TEMP 97.9
[2019-10-21] MEDS: Sodium Chloride 0.9% 1,000 ML IV SCH (05:11)
[2019-10-21 07:38] VITALS: BP 100/62
[2019-10-21] MEDS ORDERED: Loratadine 10 MG TAB PO SCH (09:00)
[2019-10-21] MEDS ORDERED: Multivitamin W/ Minerals 1 TAB PO SCH (09:00)
[2019-10-21] MEDS: Gabapentin 300 MG CAP PO SCH (09:45)
--- NOTE | 2019-10-21 10:33 | PRG ---
DATE OF SERVICE: 10/21/2019 Mr. Alas is postoperative day 1 from lumbar decompression diskectomy. He is doing well and neurologically intact with improvement in his leg pain. We went over interim postoperative issues. He has met criteria for dismissal. We will discharge him home. Job ID: [id number]
== END 2019-10-21 10:10 | disposition home or self-care (01) ==
LOC: SDC 08:56 → SURG A 15:23 → SDC 10-21 10:10
PROVIDERS: ATTEND Surgery
PROC: 0ST20ZZ Resection of Lumbar Vertebral Disc, Open Approach (ICD-10-PCS; principal; 2019-10-20)
PROC: 01NB0ZZ Release Lumbar Nerve, Open Approach (ICD-10-PCS; principal; 2019-10-20)
DX: M48.061 Spinal stenosis, lumbar region without neurogenic claudication (principal); M51.16 Intervertebral disc disorders with radiculopathy, lumbar region; Z79.899 Other long term (current) drug therapy; Z88.0 Allergy status to penicillin; Z91.013 Allergy to seafood
CPT/HCPCS: 76000; J1100; J1200; J1885; J1956; J2250; J2370; J2405; J2704; J3010; J3370; J3490

== ENCOUNTER 2020-08-22 13:47 | Outpatient (CLI) | payer BC | END 2020-08-22 13:48 | disposition home or self-care (01) | LOC: TBSIIMAG 13:47 | PROVIDERS: ATTEND Nurse Practitioner Pediatrics | DX: M47.22 Other spondylosis with radiculopathy, cervical region (principal); M50.123 Cervical disc disorder at C6-C7 level with radiculopathy; M43.13 Spondylolisthesis, cervicothoracic region | CPT/HCPCS: 72040; 72141 ==

== ENCOUNTER 2020-08-28 12:32 | Outpatient (CLI) | payer BC ==
[2020-08-28 14:36] LABS: Hemoglobin 12.2 g/dL (13.5-17.5); Mean Corpuscular HGB CONC 30.4 g/dL (32.0-36.0); Mean Corpuscular Hemoglobin 25.7 pg (27.0-33.0); Mean Corpuscular Volume 84.6 fl (81.2-95.1); Mean Platelet Volume 11.8 fl (7.4-10.4); Platelet Count 281 10x3/uL (150-450); RBC Distribution Width 15.2 % (11.5-14.5); Red Blood Cell (RBC) Count 4.74 10x6/uL (4.32-5.72); White Blood Cell (WBC) Count 7.2 10x3/uL (3.5-10.5)
[2020-08-28 14:49] LABS: Anion Gap 15 mmol/L (10-20); BUN (Urea Nitrogen) 14 mg/dL (8.4-25.7); Calc. Creatinine Clearance 0 mL/min (70-130); Carbon Dioxide 25 mmol/L (23-31); Chloride 103 mmol/L (98-107); Glucose 145 mg/dL (80-115); Potassium 4.3 mmol/L (3.5-5.1); Sodium 139 mmol/L (136-145)
[2020-08-28 15:16] LABS: INR-International Normal Ratio 1.1; PTT 27.4 sec (22.0-33.0); Prothrombin Time 11.3 sec (9.5-12.1)
[2020-08-29 01:44] LABS: SARS-CoV-2 PCR by NAA Not Detected (NotDetected)
== END 2020-08-28 12:33 | disposition home or self-care (01) ==
LOC: LABBT 12:32
PROVIDERS: ATTEND Surgery
DX: Z01.818 Encounter for other preprocedural examination (principal); M48.02 Spinal stenosis, cervical region; M54.12 Radiculopathy, cervical region; Z20.822 Contact with and (suspected) exposure to COVID-19
CPT/HCPCS: 80048; 85027; 85610; 85730; 87635; 93005; 93010; U0003; U0005

== ENCOUNTER 2020-08-31 06:02 | Day surgery (SDC) | payer BC ==
[2020-08-29 13:39] VITALS: BMI 34.2
[2020-08-31] MEDS ORDERED: Thrombin 5000 UNITS/5 ML VIAL ONE (06:37)
[2020-08-31] MEDS ORDERED: Scopolamine 1.5 mg/72 hour Patch ONE (06:57)
[2020-08-31] MEDS ORDERED: Famotidine/PF 20 mg/2ml Vial ONE (06:58)
[2020-08-31] MEDS ORDERED: Ondansetron PF 4 MG/2 ML Vial ONE (07:00)
[2020-08-31] MEDS ORDERED: Dexamethasone 20 MG/5 ML VIAL ONE (07:00)
[2020-08-31] MEDS ORDERED: Levofloxacin 500 mg/D5W 100 ml Premix Bag ONE (07:00)
[2020-08-31] MEDS ORDERED: PHENYLEPHRINE-NS 100 MCG/ML 10 ML SYRINGE ONE (07:00)
[2020-08-31] MEDS ORDERED: Clindamycin/D5W 900 mg/50 ml Premix Bag ONE (07:00)
[2020-08-31] MEDS ORDERED: Metoclopramide HCl 10 MG/2 ML VIAL ONE (07:00)
[2020-08-31] MEDS ORDERED: PROPOFOL 200 MG/20 ML VIAL ONE (07:00)
[2020-08-31] MEDS ORDERED: Lidocaine 1% PF 5 ML VIAL ONE (07:00)
[2020-08-31] MEDS ORDERED: Glycopyrrolate 0.2 MG/ML 5 ML SYRINGE ONE (07:00)
[2020-08-31] MEDS ORDERED: Rocuronium Bromide 10 MG/ML (10ML VIAL) ONE (07:00)
[2020-08-31] MEDS ORDERED: Fentanyl 250 MCG/5 ML VIAL ONE (07:09)
[2020-08-31] MEDS ORDERED: Midazolam HCl 2 mg/2 ml Vial ONE (07:11)
[2020-08-31] MEDS ORDERED: Ondansetron HCl/PF 4 MG/2 ML Vial IVP PRN (09:25)
[2020-08-31] MEDS ORDERED: Promethazine HCl 25 MG/ML VIAL SLOW IVP PRN (09:25)
[2020-08-31] MEDS ORDERED: Promethazine HCl 25 MG/ML VIAL IM PRN (09:25)
[2020-08-31] MEDS ORDERED: PACU-Morphine 4MG/ML VIAL SLOW IVP PRN (09:25)
[2020-08-31] MEDS ORDERED: Morphine Sulfate 2 MG/ML SYRINGE SLOW IVP PRN (09:25)
[2020-08-31] MEDS ORDERED: HYDROmorphone 2 MG/ML VIAL SLOW IVP PRN (09:25)
[2020-08-31] MEDS ORDERED: Fentanyl 100 MCG/2 ML VIAL ONE (10:28)
[2020-08-31] MEDS ORDERED: Naloxone HCl 0.4 mg/ml Vial ONE (10:36)
[2020-08-31] MEDS ORDERED: Mag-Al 1200 mg/1200 mg/30 ML UDCUP PO PRN (10:59)
[2020-08-31] MEDS ORDERED: Bisacodyl 10 MG SUPP PR PRN (10:59)
[2020-08-31] MEDS ORDERED: traMADol HCl 50 MG TAB PO PRN (10:59)
[2020-08-31] MEDS ORDERED: Morphine 2 MG/ML VIAL SLOW IVP PRN (10:59)
[2020-08-31] MEDS ORDERED: Acetaminophen 325 MG TAB PO PRN (10:59)
[2020-08-31] MEDS ORDERED: Milk Of Magnesia 30 ML UDCUP PO PRN (10:59)
[2020-08-31] MEDS ORDERED: tiZANidine HCl 4 MG TAB PO PRN (10:59)
[2020-08-31] MEDS ORDERED: HYDROcodone/Acetaminophen 7.5/325 mg Tablet PO PRN (10:59)
[2020-08-31] MEDS: Sodium Chloride 0.9% 1,000 ML IV SCH (14:29)
[2020-08-31] MEDS: Clindamycin/D5W 900 MG in Premix Bag 1 BAG IVPB SCH ×2 (14:29→23:07)
[2020-08-31] MEDS ORDERED: Chloraseptic Spray 180 ml Bottle PO PRN (20:38)
[2020-08-31] MEDS: Gabapentin 300 MG CAP PO SCH (20:47)
[2020-08-31] MEDS ORDERED: MESALAMINE 1.2 GM PO SCH (21:00)
[2020-08-31] MEDS: Acetaminophen/Codeine 30-300mg Tablet PO PRN (23:05)
[2020-09-01] MEDS: Sodium Chloride 0.9% 1,000 ML IV SCH (02:38)
[2020-09-01] MEDS: Cepastat Lozenges 1 LOZ PO PRN ×2 (04:15→11:59)
[2020-09-01] MEDS: Clindamycin/D5W 900 MG in Premix Bag 1 BAG IVPB SCH (06:10)
[2020-09-01] MEDS: Gabapentin 300 MG CAP PO SCH (08:02)
[2020-09-01] MEDS ORDERED: Multivitamin W/ Minerals 1 TAB PO SCH (09:00)
[2020-09-01] MEDS ORDERED: Loratadine 10 MG TAB PO SCH (09:00)
[2020-09-01 11:49] VITALS: BP 143/81; TEMP 98
[2020-09-01] MEDS: Acetaminophen/Codeine 30-300mg Tablet PO PRN (11:58)
[2020-09-01] MEDS ORDERED: Dexamethasone 4 mg/ml Vial SLOW IVP SCH (13:30)
[2020-09-01] MEDS ORDERED: Dexamethasone 10 MG/ML VIAL SLOW IVP SCH (13:30)
== END 2020-09-01 13:30 | disposition home or self-care (01) ==
LOC: SDC 06:02 → SURG A 10:58 → SDC 09-01 13:30
PROVIDERS: ATTEND Surgery
PROC: 0RT30ZZ Resection of Cervical Vertebral Disc, Open Approach (ICD-10-PCS; principal; 2020-08-31)
PROC: 0RG20A0 Fusion of 2 or more Cervical Vertebral Joints with Interbody Fusion Device, Anterior Approach, Anterior Column, Open Approach (ICD-10-PCS; principal; 2020-08-31)
DX: M48.02 Spinal stenosis, cervical region (principal); M50.022 Cervical disc disorder at C5-C6 level with myelopathy; M50.122 Cervical disc disorder at C5-C6 level with radiculopathy; Z79.1 Long term (current) use of non-steroidal anti-inflammatories (NSAID); Z79.899 Other long term (current) drug therapy; Z88.0 Allergy status to penicillin; Z91.013 Allergy to seafood
CPT/HCPCS: 36415; 76000; 86850; 86900; 86901; C1713; C1776; J1100; J1956; J2250; J2310; J2405; J2704; J2765; J3010; J3490; S0028

== ENCOUNTER 2020-10-11 07:38 | Outpatient (CLI) | payer BC | END 2020-10-11 07:39 | disposition home or self-care (01) | LOC: RAD-FRANK 07:38 | PROVIDERS: ATTEND Physician Assistant | DX: M48.02 Spinal stenosis, cervical region (principal); M50.00 Cervical disc disorder with myelopathy, unspecified cervical region; M50.10 Cervical disc disorder with radiculopathy, unspecified cervical region; M47.22 Other spondylosis with radiculopathy, cervical region; M47.12 Other spondylosis with myelopathy, cervical region; Z98.1 Arthrodesis status | CPT/HCPCS: 72040 ==

== ENCOUNTER 2021-12-19 15:38 | Outpatient (CLI) | payer BC | END 2021-12-19 15:39 | disposition home or self-care (01) | LOC: CTENTCT 15:38 | PROVIDERS: ATTEND Otolaryngology Plastic Surgery within the Head & Neck | DX: J32.8 Other chronic sinusitis (principal) | CPT/HCPCS: 70486 ==